=== PATIENT | female | born 1940 | race Caucasian/White ===

== ENCOUNTER 2020-08-04 13:27 | Inpatient (IN) | payer MEDICARE, OTHER ==
[~2020-08-04] VITALS: Ht 160 cm; Wt 74.8 kg
--- NOTE | ~2020-08-04 | CON ---
[address] [address] CONSULTATION Name: LI ROSARIO Room: [address] ADM IN M.R.#: [id number] Admission: 08/04/20 Attend Phys: Shaista Muñoz Discharge: Date of : 38 Report #: [id number] THIS REPORT FOR: cc: Terri Irby MD, Constance M. MD Khosla, Parveen K. 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 Symptom lasted for a few days and then spontaneously resolved. She was admitted to the hospital, but during that admission, she was found to be COVID positive. When asked, she says she has some cough, but not much symptoms. She is not vaccinated. When the patient came to emergency room, her blood sugar was as low as 39 at one time. REVIEW OF SYSTEMS: Positive for what looks like a pretty classical TIA, but happened in relation to very low blood sugar. She feels back to her baseline. REVIEW OF SYSTEMS: Positive for hypothyroidism and diabetes. She denies any stroke. Rest of the 14-point review of systems is unremarkable. PAST MEDICAL HISTORY: Negative for any stroke, but is positive for diabetes. FAMILY HISTORY: Unremarkable. SOCIAL HISTORY: She does not drink alcohol. PHYSICAL EXAMINATION: NEUROLOGIC: Indicate she was alert, responsive, able to follow simple and complex commands. Her higher functions and cranial nerve examination is unremarkable. Neuromuscular examinations appear unremarkable. VITAL SIGNS: Blood pressure is 134/69, respirations 19, pulse is 82, temperature 97.6. EXTREMITIES: No edema, cyanosis or jaundice. CARDIAC: Appear unremarkable. LABORATORY DATA: White count is 8.4. At one time, her blood sugar was 39. She did have a carotid Doppler, which demonstrated moderate stenosis. Her GFR was only 27 when she came in. Therefore, CT angiogram was not done. IMPRESSION: This patient presented with [place] [address] CONSULTATION Name: LI ROSARIO Room: [address] IN [facility]#: [id number] Admission: 08/04/20 Attend Phys: Shaista Muñoz Discharge: Date of : 38 Report #: [id number] She was hypoglycemic, which can easily cause focal symptoms, but neurological etiology need to be excluded. I think the best test will be doing an MRI and MRA in this patient because this patient has renal failure. We will see what does that show and echocardiogram show and reevaluate this patient tomorrow. Thank you very much for this referral. MD BERTHA Bowser/MADI By: [id number] Paredes MD /rober
[2020-08-04 13:28] VITALS: BP 157/74
[2020-08-04] MEDS ORDERED: CHLORTHALIDONE25 MG PO (13:32)
[2020-08-04] MEDS ORDERED: LANTUS SUBQ (13:32)
[2020-08-04] MEDS ORDERED: LIPITOR40 MG PO (13:33)
[2020-08-04] MEDS ORDERED: METFORMIN HCL500 M3 PO (13:33)
[2020-08-04] MEDS ORDERED: MINOCYCLINE 5050 M1 PO (13:33)
[2020-08-04] MEDS ORDERED: GLIMEPIRIDE4 MG PO (13:34)
[2020-08-04 14:07] LABS: ABSOLUTE BASOPHILS 0.1 thou/uL (0.0-0.2); ABSOLUTE LYMPHOCYTES 0.9 thou/uL (0.8-5.3); ABSOLUTE MONOCYTES 0.8 thou/uL (0.0-1.2); ABSOLUTE NEUTROPHILS 6.7 thou/uL (1.6-8.1); BASOPHILS 0.7 %; EOSINOPHILS 0.2 %; HEMATOCRIT 37.8 % (37.0-47.0); HEMOGLOBIN 12.6 gm/dL (12.0-15.0); LYMPHOCYTES 10.5 %; MCH 32.6 pg (26.0-34.0); MCHC 33.3 g/dL (28.0-37.0); MCV 97.9 fL (80.0-100.0); MONOCYTES 9.2 %; MPV 9.3 fl. (7.2-11.1); NUCLEATED RBCS 0 /100WBC; PLATELET COUNT* 195 thou/uL (150-400); POLYS 79.4 %; RBC 3.86 mil/uL (4.20-5.00); RDW-CV 13.8 % (10.5-14.5); WBC 8.4 thou/uL (4.0-11.0)
[2020-08-04 14:29] LABS: CALCIUM 8.4 mg/dL (8.5-10.1); CREATININE 1.8 mg/dL (0.6-1.3); POTASSIUM 4.7 mmol/L (3.5-5.1)
[2020-08-04 14:35] LABS: ALBUMIN 3.4 g/dL (3.4-5.0); TOTAL BILIRUBIN 0.3 mg/dL (<0.1-1.0); TOTAL PROTEIN 7.3 g/dL (6.4-8.2)
[2020-08-04 20:22] VITALS: BP 125/52
[2020-08-04] MEDS ORDERED: LEVOTHYROXINE75 MC1 PO (21:34)
[2020-08-04] MEDS ORDERED: Coreg PO (21:38)
[2020-08-04] MEDS ORDERED: LISINOPRIL20 MG PO (22:01)
[2020-08-04] MEDS ORDERED: [UNRECOGNIZED DRUG - OTHER] OPHTHALMIC (22:04)
[2020-08-04] MEDS ORDERED: [UNRECOGNIZED DRUG - OTHER] (22:09)
[2020-08-04 23:30] VITALS: BP 132/57
[2020-08-05] VITALS: BP 120/59
[2020-08-05 04:00] VITALS: BP 123/57
--- NOTE | 2020-08-05 05:38 | NUR ---
SLEPT WELL TONIGHT. PT ABLE TO MAEW, NO FACIAL DROOP OR SPEACH DIFFICULTY. PT IS FORGETFUL WITH PAST QUESTIONS AND WHAT MEDS ON AND REASON FOR THEM. TELEMETRY APPLIES SHOWING SR. SEE ADMISSION ASSESSMENT AND HX. WILL CONT TO MONITOR AND ASSIST NEEDED.
[2020-08-05 05:40] LABS: CHOLESTEROL 100 mg/dL (<200); HDL CHOLESTEROL 33 mg/dL (>40); LDL CHOLESTEROL 55 mg/dL (<100); TRIGLYCERIDE 64 mg/dL (<150); VLDL 13 mg/dL (<40)
[2020-08-05 05:46] LABS: SERUM ASSESSMENT Clear
--- NOTE | 2020-08-05 05:52 | NUR ---
SLEPT WELL. HAS NOT BEEN UP TONIGHT OR VOIDED. NO CHANGE IN ASSESSMENT. TELEMETRY CONT TO SHOW SR. HS GOALS OF REST AND SAFETY ACHIEVED. HOURLY ROUNDING OBSERVED.
[2020-08-05 08:40] VITALS: BP 120/59
[2020-08-05 12:00] VITALS: BP 134/69
--- NOTE | 2020-08-05 13:27 | 2DMMODE ---
[place] [address] 2 D/M-MODE ECHOCARDIOGRAM Name: LI ROSARIO Room: [address] Anita Duke#: [id number] Admission: 08/04/20 Attend Phys: Odin Champion Discharge: Date of : 38 Date of Service: 08/05/20 1327 Report #: [id number] THIS REPORT FOR: cc: Terri Irby MD, Constance M. MD Holkins, John M. MD [facility] ~ APPROVED REPORT Study performed: 08/05/2020 12:05:23 EXAM: Comprehensive 2D, Doppler, and color-flow Echocardiogram Patient Location: In-Patient Room #: [facility] Status: routine BSA: 1.82 HR: 71 bpm BP: 120/59 mmHg Rhythm: NSR Other Information Study Quality: Good Indications CVA/TIA Echo Enhancing Agent Indication: Rule out Shunt Agent(s) / Amount(s) Used: Agitated Saline 10 cc 2D Dimensions IVSd: 10.64 (7-11mm) LVOT Diam: 19.34 (18-24mm) LVDd: 41.74 mm PWd: 10.09 (7-11mm) Ascending Ao: 27.73 (22-36mm) LVDs: 29.81 (25-40mm) Aortic Root: 28.16 mm Volumes Left Atrial Volume (Systole) LA ESV Index: 23.10 mL/m2 Aortic Valve AoV Peak Keshawn.: 1.36 m/s AO Peak Gr.: 7.43 mmHg LVOT Max P.03 mmHg AO Mean Gr.: 3.44 mmHg LVOT Mean P.13 [place] [address] 2 D/M-MODE ECHOCARDIOGRAM Name: LI ROSARIO Room: [address] M.R.#: [id number] Admission: 08/04/20 Attend Phys: Odin Champion Discharge: Date of : 38 Date of Service: 08/05/20 1327 Report #: [id number] LVOT Max V: 1.12 m/s AO V2 VTI: 25.35 cm LVOT Mean V: 0.66 m/s ADRIAN (VTI): 2.81 cm2 LVOT V1 VTI: 24.23 cm Mitral Valve E/A Ratio: 0.69 MV Decel. Time: 223.77 ms MV E Max Keshawn.: 0.70 m/s MV PHT: 64.89 ms MVA (PHT): 3.39 cm2 TDI E/Lateral E': 7.78 E/Medial E': 7.78 Medial E' Keshawn.: 0.09 m/s Lateral E' Keshawn.: 0.09 m/s Pulmonary Valve PV Peak Keshawn.: 0.94 m/s PV Peak Gr.: 3.54 mmHg Tricuspid Valve RAP Estimate: 5.00 mmHg TR Peak Gr.: 21.34 mmHg RVSP: 26.00 mmHg PA Pressure: 26.00 mmHg Left Ventricle The left ventricle is normal size. There is normal LV segmental wall motion. Borderline concentric left ventricular hypertrophy. Left ventricular systolic function is normal. The left ventricular ejection fraction is within the normal range. LVEF is 55-60%. Grade I - abnormal relaxation pattern. Right Ventricle The right ventricle is normal size. The right ventricular systolic function is normal. Atria The left atrium size is normal. The interatrial septum is intact with no evidence for an atrial septal defect. The right atrium size is normal. Aortic Valve The aortic valve is normal in structure. No aortic regurgitation is present. There is no aortic valvular stenosis. Mitral Valve The mitral valve is normal in structure. [place] [address] 2 D/M-MODE ECHOCARDIOGRAM Name: LI ROSARIO Room: [address] M.R.#: [id number] Admission: 08/04/20 Attend Phys: Odin Champion Discharge: Date of : 38 Date of Service: 08/05/20 1327 Report #: [id number] No evidence of mitral valve stenosis. Tricuspid Valve The tricuspid valve is normal in structure. Trace tricuspid regurgitation. No pulmonary hypertension. Pulmonic Valve The pulmonary valve is normal in structure. There is no pulmonic valvular regurgitation. Great Vessels The aortic root is normal in size. IVC is normal in size and collapses >50% with inspiration. Pericardium There is no pericardial effusion. <Conclusion> The left ventricle is normal size. Borderline concentric left ventricular hypertrophy. Left ventricular systolic function is normal. The left ventricular ejection fraction is within the normal range. LVEF is 55-60%. Grade I - abnormal relaxation pattern. The right ventricle is normal size. The left atrium size is normal. The aortic valve is normal in structure. The mitral valve is normal in structure. The tricuspid valve is normal in structure. IVC is normal in size and collapses >50% with inspiration. There is no pericardial effusion. There is normal LV segmental wall motion. The interatrial septum is intact with no evidence for an atrial septal defect. <ELECTRONICALLY SIGNED> By: Yuniel Cronin MD, [facility] 08/05/20 1327 26 26 Yuniel Cronin MD, FACC /INF
--- NOTE | 2020-08-05 13:52 | EKG ---
[place] [address] ELECTROCARDIOGRAM REPORT Name: LI ROSARIO Room: [address] M.R.#: [id number] Admission: 08/04/20 Attend Phys: Odin Champion Discharge: Date of : 38 Date of Service: 08/04/20 1351 Report #: [id number] THIS REPORT FOR: //name// [facility] ED Test Date: 2020-08-04 Test Time: 13:51:05 Pat Name: LI ROSARIO Department: Room: [facility] Gender: F Civil Preparedness Training Officer: STEPHEN : 1940 Requested By: Victor Manuel Cabral Order Number: [id number] MD: Yuniel Cronin Measurements Intervals [place] Rate: 75 P: 41 [place]: 149 QRS: 20 QRSD: 85 T: 60 QT: 336 QTc: 376 Interpretive Statements Sinus rhythm Low voltage, precordial leads No previous ECG available for comparison Electronically Signed On 08-05-2020 13:51:54 CDT by Yuniel Cronin [email or web address] <ELECTRONICALLY SIGNED> By: Yuniel Cronin MD, [facility] 08/05/20 1351 135 1351 Yuniel Cronin MD, [facility] /EPI
[2020-08-05 16:00] VITALS: BP 109/63
--- NOTE | 2020-08-05 16:27 | NUR ---
CM ASSESSMENT: PT A&O. PT NORMALLY INDEPENDENT WITH ADL'S AND ACTIVE. PT ABLE TO DRIVE SHORT DISTANCES (IN TOWN). PT RESIDES AT HOME WITH SPOUSE. PT USES 0 DME. PT HAS 0 HX OF HH OR SNF, AND PLANS TO RETURN HOME AT D/C. CM D/C PLANNING NEEDS TBD. CM WILL REMAIN AVAILABLE TO ASSIST AND FOLLOW NEEDED.
--- NOTE | 2020-08-05 17:57 | NUR ---
Pt underwent multiple diagnostics today to R/O CVA. Moist productive cough. VSS. Reports BM today; voiding without difficulty. States she hopes to be discharged tomorrow. Will continue to monitor.
[2020-08-05 21:00] VITALS: BP 112/56
--- NOTE | 2020-08-05 21:00 | NUR ---
RECEIVED REPORT AT 1900 AND ASSUMED CARE OF PT, ASSESSMENT COMPLETED AT THIS TIME. RESTING QUIETLY IN BED WATCHING TV. HAVING OCC MOIST COUGH. TO BR WITH STEADY GAIT, DOES BECOME DYPNEIC. TELEMETRY ON SHOWING SR. WILL CONT TO MONITOR AND ASSIST NEEDED.
[2020-08-06 00:16] VITALS: BP 102/52
[2020-08-06 04:00] VITALS: BP 100/55
[2020-08-06 04:47] LABS: HEMATOCRIT 32.5 % (37.0-47.0); HEMOGLOBIN 11.2 gm/dL (12.0-15.0); MCH 33.1 pg (26.0-34.0); MCHC 34.3 g/dL (28.0-37.0); MCV 96.5 fL (80.0-100.0); MPV 9.7 fl. (7.2-11.1); RBC 3.37 mil/uL (4.20-5.00); RDW-CV 13.7 % (10.5-14.5); WBC 6.4 thou/uL (4.0-11.0)
[2020-08-06 04:53] LABS: CALCIUM 8.1 mg/dL (8.5-10.1); CREATININE 2.1 mg/dL (0.6-1.3); POTASSIUM 4.1 mmol/L (3.5-5.1)
--- NOTE | 2020-08-06 06:07 | NUR ---
SLEPT WELL TONIGHT. NO CHANGE IN ASSESSMENT. GLUCOSE PER LAB THIS AM 80, PT FEELS NO SYMPTOMS. WILL HOLD AM LANTUS UNTIL EVALUATED. TELEMETRY CONT TO SHOW SR. HS GOALS OF REST AND SAFETY ACHIEVED. HOURLY ROUNDING OBSERVED.
[2020-08-06 08:54] VITALS: BP 123/57
[2020-08-06 12:16] VITALS: BP 117/59
[2020-08-06 13:40] LABS: POTASSIUM 4.8 mmol/L (3.5-5.1)
--- NOTE | 2020-08-06 15:04 | NUR ---
PLAN OF CARE: PLAN FOR THE PT TO POSSIBLY D/C TODAY PENDING NEURO. NO CM D/C PLANNING NEEDS ANTICIPATED. CM WILL REMAIN AVAILABLE TO ASSIST AND FOLLOW NEEDED.
[2020-08-06 16:25] VITALS: BP 115/59
[2020-08-06] MEDS ORDERED: PLAVIX 75 MG TA75 MG PO (17:00)
[2020-08-06 19:08] VITALS: BP 115/59
--- NOTE | 2020-08-06 20:15 | NUR ---
Reviewed discharge teaching with patient; verbalized understanding. Patient discharged later d/t awaiting Renal US to be completed. Instructed to discuss blood sugar issues with PCP, which pt states they have been working on for the past 6 mos. Pt also instructed to FU with PCP regarding renal US findings and to get BMP with appointment, which would follow her isolation, which ends 08/14/2020. IV and vehicle monitor technician dc'd. Discharged from unit per WC.
== END 2020-08-06 20:15 | disposition home or self-care (01) | DRG 177 ==
LOC: M.ERS 13:27 → M.2W 14:14 → M.TBA-ER 14:14 → M.2W 20:32
PROVIDERS: Family Medicine; ADMIT Internal Medicine; ATTEND Internal Medicine
DX: U07.1 COVID-19 (principal); N17.0 Acute kidney failure with tubular necrosis; T50.995A Adverse effect of other drugs, medicaments and biological substances, initial encounter; E03.9 Hypothyroidism, unspecified; I10 Essential (primary) hypertension; E11.649 Type 2 diabetes mellitus with hypoglycemia without coma; Z79.4 Long term (current) use of insulin; Z88.2 Allergy status to sulfonamides; Z79.899 Other long term (current) drug therapy; Z91.040 Latex allergy status; Z88.8 Allergy status to other drugs, medicaments and biological substances; Y92.89 Other specified places as the place of occurrence of the external cause